=== PATIENT | male | born 1950 | race Caucasian/White ===

== ENCOUNTER 2024-05-25 02:53 | Emergency (ER) | payer OTHER ==
[2024-05-25] MEDS ORDERED: Aspirin 81 MG Tab.Chew ONE (02:58)
[2024-05-25] MEDS ORDERED: Nitroglycerin 0.4 MG Tab.SL ONE (02:59)
[2024-05-25] MEDS ORDERED: Sodium Chloride 0.9% 10 ML Syringe FLUSH PRN (03:07)
[2024-05-25] MEDS: Nitroglycerin 0.4 MG Tab.SL SL PRN (03:09)
[2024-05-25] MEDS: Aspirin 81 MG Tab.Chew PO ONE (03:09)
[2024-05-25 03:17] LABS: BASOPHILS ABSOLUTE AUTO 0.02 K/uL (0.00-0.20); BASOPHILS PERCENT AUTO 0.3 % (0.0-2.0); EOSINOPHILS ABSOLUTE AUTO 0.27 K/uL (0.00-0.50); EOSINOPHILS PERCENT AUTO 4.7 % (0.0-5.0); HEMATOCRIT 43.1 % (39.0-49.0); HEMOGLOBIN 14.4 g/dL (13.1-16.8); LYMPHOCYTES ABSOLUTE AUTO 1.27 K/uL (0.50-3.50); LYMPHOCYTES PERCENT AUTO 22.2 % (10.0-50.0); MEAN CORPUSCULAR HGB CONC 33.4 g/dL (31.7-36.0); MEAN CORPUSCULAR VOLUME 86.7 fL (84.0-98.0); NEUTROPHILS ABSOLUTE AUTO 3.37 K/uL (1.40-7.00); NEUTROPHILS PERCENT AUTO 58.8 % (45.0-80.0); PLATELET COUNT,PLT 150 K/uL (150-350); RED BLOOD CELL COUNT 4.97 M/uL (4.33-5.41); RED CELL DISTRIBUTION WIDTH 14.1 % (11.2-14.1); WHITE BLOOD CELL COUNT,WBC 5.7 K/uL (4.0-10.2)
[2024-05-25 03:54] LABS: ALBUMIN 3.4 g/dL (3.4-5.0); ANION GAP 9.3 meq/L (7-15); BILIRUBIN TOTAL 0.5 mg/dL (0.2-1.0); CALCIUM 9.2 mg/dL (8.5-10.1); CARBON DIOXIDE,CO2 30.7 mmol/L (21.0-32.0); CREATININE 1.14 mg/dL (0.51-1.17); EST CRCL DRUG DOSING (CG) 64.29 mL/min; MAGNESIUM 2.4 mg/dL (1.8-2.4); POTASSIUM,K 3.8 mmol/L (3.5-5.1); PROTEIN TOTAL,TP 7.2 g/dL (6.4-8.2)
[2024-05-25] MEDS ORDERED: Lidocaine 2% Viscous Solution 15 ML UD PO ONE (04:06)
[2024-05-25] MEDS: Aluminum Hydroxide/Magnesium Hydroxide/Simethicone Susp 30 ML Cup PO ONE (04:13)
== END 2024-05-25 06:25 | disposition home or self-care (01) ==
LOC: LL.ED 02:53
DX: R07.9 Chest pain, unspecified (principal); I10 Essential (primary) hypertension; Z95.5 Presence of coronary angioplasty implant and graft; E11.9 Type 2 diabetes mellitus without complications; Z79.82 Long term (current) use of aspirin; Z79.4 Long term (current) use of insulin; Z79.899 Other long term (current) drug therapy; Z88.9 Allergy status to unspecified drugs, medicaments and biological substances; Z88.8 Allergy status to other drugs, medicaments and biological substances; Z88.2 Allergy status to sulfonamides
CPT/HCPCS: 36415; 71045; 80053; 83605; 83735; 83880; 84484; 85025; 85379; 93005; 99285; A9270; 93010; 99284

== ENCOUNTER 2024-11-29 17:47 | Emergency (ER) | payer OTHER ==
[2024-11-29] MEDS: Ondansetron 4 MG/2 ML SDV IVPUSH PRN (18:12)
[2024-11-29] MEDS: Sodium Chloride 0.9% 10 ML Syringe FLUSH PRN (18:13)
[2024-11-29] MEDS ORDERED: Naloxone 0.4 MG/ML SDV IVPUSH PRN (18:19)
[2024-11-29] MEDS: Aspirin 81 MG Tab.Chew PO ONE (18:19)
[2024-11-29] MEDS: fentaNYL 50 MCG/ML SDV IVPUSH ONE ×2 (18:23→19:05)
[2024-11-29] MEDS: Aspirin 81 MG Tab.Chew ONE (18:23)
[2024-11-29] MEDS: Nitroglycerin 0.4 MG Tab.SL SL PRN (18:34)
[2024-11-29] MEDS: Sodium Chloride 0.9% 500 ML IV SCH (18:45)
[2024-11-29] MEDS: Nitroglycerin 0.4 MG Tab.SL ONE (18:50)
[2024-11-29 19:04] LABS: PRO B-TYPE NATRIUR PEPT,BNPPRO 817 pg/mL (0-125)
[2024-11-29 19:08] LABS: BASOPHILS ABSOLUTE AUTO 0.01 K/uL (0.00-0.20); BASOPHILS PERCENT AUTO 0.1 % (0.0-2.0); HEMOGLOBIN 15.3 g/dL (13.1-16.8); IMMATURE GRAN ABSOLUTE AUTO 0.01 10^3/uL (0.00-0.04); IMMATURE GRAN PERCENT AUTO 0.1 % (0.0-0.4); LYMPHOCYTES PERCENT AUTO 6.3 % (10.0-50.0); MEAN CORPUSCULAR HEMOGLOBIN 28.8 pg (28.2-33.3); MEAN CORPUSCULAR VOLUME 84.6 fL (84.0-98.0); MONOCYTES ABSOLUTE AUTO 0.26 K/uL (0.00-1.00); MONOCYTES PERCENT AUTO 3.3 % (2.0-14.0); NEUTROPHILS ABSOLUTE AUTO 7.14 K/uL (1.40-7.00); NEUTROPHILS PERCENT AUTO 90.2 % (45.0-80.0); PLATELET COUNT,PLT 158 K/uL (150-350); RED BLOOD CELL COUNT 5.32 M/uL (4.33-5.41); RED CELL DISTRIBUTION WIDTH 13.4 % (11.2-14.1); WHITE BLOOD CELL COUNT,WBC 7.9 K/uL (4.0-10.2)
[2024-11-29 19:09] LABS: CORONAVIRUS COVID-19 NAA NEGATIVE (NEGATIVE); INFLUENZA A NAA NEGATIVE (NEGATIVE); INFLUENZA B NAA NEGATIVE (NEGATIVE); RESPIRATORY SYNCYTIAL VIR NAA NEGATIVE (NEGATIVE)
[2024-11-29 19:13] LABS: ANION GAP 5.9 meq/L (7-15); CALCIUM 9.8 mg/dL (8.5-10.1); CARBON DIOXIDE,CO2 31.1 mmol/L (21.0-32.0); CREATININE 1.12 mg/dL (0.51-1.17); EST CRCL DRUG DOSING (CG) 64.47 mL/min; POTASSIUM,K 4.2 mmol/L (3.5-5.1)
[2024-11-29 19:22] LABS: PTT,PARTIAL THROMBOPLSTIN TIME 25.2 SEC (23.8-34.4)
[2024-11-29] MEDS: Nitroglycerin/D5W 25 MG/250 ML BOTTLE IV SCH (19:52)
== END 2024-11-29 20:08 ==
LOC: LL.ED 17:47
DX: I48.0 Paroxysmal atrial fibrillation (principal); E78.00 Pure hypercholesterolemia, unspecified; I10 Essential (primary) hypertension; E11.9 Type 2 diabetes mellitus without complications; Z95.0 Presence of cardiac pacemaker; Z88.8 Allergy status to other drugs, medicaments and biological substances; Z79.899 Other long term (current) drug therapy; Z79.01 Long term (current) use of anticoagulants
CPT/HCPCS: 0241U; 36415; 71045; 80048; 82947; 83880; 84484; 85025; 85610; 85730; 93005; 96361; 96365; 96375; 96376; 99285-25; A9270-GY; J2305; J2405; J3010; J7040